=== PATIENT | female | born 1995 | race American Indian/Alaskan Native ===

== ENCOUNTER 2016-07-22 21:07 | Outpatient (CLI) | payer MEDICAID ==
[2016-07-22 22:02] LABS: Hemoglobin 11.1 gm/dl (10.1-14.3); Mean Corpuscular HGB Conc 33 % (30-34); Mean Corpuscular Hemoglobin 26 pg (28-32); Mean Corpuscular Volume 81 fl (79-97); Platelet Count 212 K/mm3 (140-440); Red Cell Distribution Width 16.5 % (13.2-15.2)
[2016-07-22 22:08] LABS: Bilirubin,Urine NEG (Negative); Blood,Urine NEG (Negative); Ketones,Urine NEG (Negative); Leukocyte Esterase,Urine NEG (Negative); Mucus,Urine FEW /HPF; Nitrite,Urine NEG (Negative); Urobilinogen,Urine < 2.0 mg/dL (<2.0)
[2016-07-22 22:15] LABS: Alanine Aminotransferase 13 units/L (7-56); Lactate Dehydrogenase 308 units/L (91-180); Uric Acid 5.5 mg/dL (3.5-7.6)
[2016-07-22 22:19] LABS: Protein,Urine >500 mg/dL (Negative)
[2016-07-22 22:49] VITALS: BP 144/84
== END 2016-07-22 22:45 | disposition home or self-care (01) ==
LOC: TRG 21:07
PROVIDERS: ATTEND Specialist
DX: O26.893 Other specified pregnancy related conditions, third trimester (principal); R03.0 Elevated blood-pressure reading, without diagnosis of hypertension; M79.89 Other specified soft tissue disorders; Z3A.36 36 weeks gestation of pregnancy
CPT/HCPCS: 36415; 81001; 82565; 83615; 84450; 84460; 84550; 85027